=== PATIENT | male | born 1930 | race Caucasian/White ===

== ENCOUNTER 2019-08-09 08:11 | Emergency (ER) | payer MEDICARE ==
[~2019-08-09] VITALS: Ht 172.7 cm; Wt 79.8 kg
[~2019-08-09 08:11] MED LIST: ASPI81EC PO; CHOL10002 PO; FLUT.05NI; FLUT44OIA IH; FOL2.2T PO; GEMF600 PO; LOSA50 PO; OLOP.1OPSO OD; OMEP20ER PO; TAMS.4ER PO
[2019-08-09 08:38] LABS: BASOPHILS PERCENT AUTO 1 % (0-2); EOSINOPHILS ABSOLUTE AUTO 0.53 K/mm3 (0.00-0.68); EOSINOPHILS PERCENT AUTO 7 % (0-6); Hematocrit 45.6 % (37.0-53.0); Hemoglobin 15.5 g/dL (13.5-17.5); IMMATURE GRAN ABSOLUTE AUTO 0.02 K/mm3 (0.00-0.10); IMMATURE GRAN PERCENT AUTO 0 % (0-1); LYMPHOCYTES PERCENT AUTO 25 % (21-46); MONOCYTES ABSOLUTE AUTO 0.64 K/mm3 (0.16-1.47); MONOCYTES PERCENT AUTO 8 % (4-13); Mean Corpuscular HGB 32.2 pg (26.0-34.0); Mean Corpuscular Volume 95 fL (80-100); Mean Platelet Volume 10.6 fL (9.1-12.4); NEUTROPHILS PERCENT AUTO 58 % (41-73); Platelet Count 248 K/mm3 (150-400); RDW Coefficient Variation 12.3 % (11.7-14.2); RDW Standard Deviation 42.8 fL (35.1-46.3); Red Blood Cell Count 4.82 M/mm3 (4.30-5.90); White Blood Cell Count 7.89 K/mm3 (4.00-11.30)
[2019-08-09 08:58] LABS: Alanine Aminotransfer (ALT/SGP 35 U/L (12-78); Albumin, Blood 3.5 g/dL (3.4-5.0); Albumin/Globulin Ratio 0.9 (0.8-1.8); Alk Phos 95 U/L (50-136); Anion Gap 4 mmol/L (6-16); Aspartate Aminotrans (AST/SGOT 30 U/L (12-37); Bilirubin, Total 0.4 mg/dL (0.1-1.0); Blood Urea Nitrogen 18 mg/dL (8-24); Bun/Creatinine Ratio 21.7 (12.0-20.0); CO2, Blood 28 mmol/L (21-32); Calcium, Blood 9.3 mg/dL (8.5-10.1); Chloride, Blood 106 mmol/L (98-108); Creatinine, Blood 0.83 mg/dL (0.60-1.20); Globulin, Blood 4.1 g/dL (2.2-4.0); Glomerular Filtration Rate >60 (60-); Glucose, Blood 113 mg/dL (70-99); Potassium, Blood 4.1 mmol/L (3.5-5.5); Sodium, Blood 138 mmol/L (136-145); Total Protein, Blood 7.6 g/dL (6.4-8.2)
[2019-08-09] MEDS ORDERED: AMLO10 PO (10:11)
[2019-08-09] MEDS ORDERED: ESOM20 PO (10:21)
[2019-08-09] MEDS ORDERED: Medi-Meclizine25 MG PO (12:05)
== END 2019-08-09 12:55 | disposition home or self-care (01) ==
LOC: ER 08:11
PROVIDERS: Emergency Medicine
DX: R42 Dizziness and giddiness (principal); I10 Essential (primary) hypertension; Z87.891 Personal history of nicotine dependence; Z88.8 Allergy status to other drugs, medicaments and biological substances; Z88.5 Allergy status to narcotic agent; Z79.899 Other long term (current) drug therapy; Z79.82 Long term (current) use of aspirin
CPT/HCPCS: 70450; 80053; 84484; 85025; 93005; 93010; 99284-25; J7120

== ENCOUNTER 2019-08-15 10:20 | Emergency (ER) | payer MEDICARE ==
[~2019-08-15] VITALS: Ht 175.3 cm; Wt 81.7 kg
[~2019-08-15 10:20] MED LIST changes: +AMLO10 PO; +ESOM20 PO; +Medi-Meclizine25 MG PO
[2019-08-15] MEDS ORDERED: Norco 5-325 Ta1 EACH PO (12:07)
== END 2019-08-15 12:20 | disposition home or self-care (01) ==
LOC: ER 10:20
DX: S16.1XXA Strain of muscle, fascia and tendon at neck level, initial encounter (principal); I10 Essential (primary) hypertension; Z87.891 Personal history of nicotine dependence; Z88.8 Allergy status to other drugs, medicaments and biological substances; Z88.5 Allergy status to narcotic agent; Z79.899 Other long term (current) drug therapy; Z79.82 Long term (current) use of aspirin; W01.10XA Fall on same level from slipping, tripping and stumbling with subsequent striking against unspecified object, initial encounter
CPT/HCPCS: 72125; 99284-25

== ENCOUNTER 2020-09-07 19:28 | Emergency (ER) | payer MEDICARE ==
[~2020-09-07] VITALS: Ht 175.3 cm; Wt 81.7 kg
[~2020-09-07 19:28] MED LIST changes: +Norco 5-325 Ta1 EACH PO
[2020-09-07] MEDS ORDERED: LOSA25 (20:28)
[2020-09-07] MEDS ORDERED: PANTOPRAZOLE SO40 M2 PO (20:28)
== END 2020-09-07 21:21 | disposition home or self-care (01) ==
LOC: ER 19:28
DX: S40.012A Contusion of left shoulder, initial encounter (principal); I10 Essential (primary) hypertension; E78.00 Pure hypercholesterolemia, unspecified; Z79.899 Other long term (current) drug therapy; Z91.041 Radiographic dye allergy status; Z88.8 Allergy status to other drugs, medicaments and biological substances; Z87.891 Personal history of nicotine dependence; W01.0XXA Fall on same level from slipping, tripping and stumbling without subsequent striking against object, initial encounter
CPT/HCPCS: 73030; 99283-25

== ENCOUNTER → 2021-07-10 | Outpatient (CLI) | payer MEDICARE ==
[~2021-07-10] MED LIST changes: +LOSA25; +PANTOPRAZOLE SO40 M2 PO
[2021-07-10 12:15] LABS: BASOPHILS ABSOLUTE AUTO 0.08 K/mm3 (0.00-0.23); BASOPHILS PERCENT AUTO 1 % (0-2); EOSINOPHILS PERCENT AUTO 1 % (0-6); Hematocrit 45.9 % (37.0-53.0); Hemoglobin 15.8 g/dL (13.5-17.5); IMMATURE GRAN ABSOLUTE AUTO 0.02 K/mm3 (0.00-0.10); IMMATURE GRAN PERCENT AUTO 0 % (0-1); LYMPHOCYTES ABSOLUTE AUTO 2.28 K/mm3 (0.84-5.20); LYMPHOCYTES PERCENT AUTO 24 % (21-46); MONOCYTES PERCENT AUTO 8 % (4-13); Mean Corpuscular HGB 32.2 pg (26.0-34.0); Mean Corpuscular HGB Conc 34.4 g/dL (31.5-36.5); Mean Corpuscular Volume 94 fL (80-100); Mean Platelet Volume 10.8 fL (9.1-12.4); NEUTROPHILS PERCENT AUTO 66 % (41-73); Platelet Count 230 K/mm3 (150-400); RDW Coefficient Variation 12.7 % (11.7-14.2); RDW Standard Deviation 43.5 fL (35.1-46.3); Red Blood Cell Count 4.91 M/mm3 (4.30-5.90); White Blood Cell Count 9.68 K/mm3 (4.00-11.30)
[2021-07-10 12:28] LABS: Alanine Aminotransfer (ALT/SGP 38 U/L (12-78); Albumin, Blood 3.7 g/dL (3.4-5.0); Albumin/Globulin Ratio 0.9 (0.8-1.8); Alk Phos 112 U/L (40-126); Anion Gap 7 mmol/L (6-16); Aspartate Aminotrans (AST/SGOT 23 U/L (12-37); Bilirubin, Total 0.5 mg/dL (0.1-1.0); Blood Urea Nitrogen 15 mg/dL (8-24); Bun/Creatinine Ratio 13.6 (12.0-20.0); CO2, Blood 30 mmol/L (21-32); Calcium, Blood 9.3 mg/dL (8.5-10.1); Chloride, Blood 101 mmol/L (98-108); Globulin, Blood 4.1 g/dL (2.2-4.0); Glomerular Filtration Rate >60 (60-); Glucose, Blood 105 mg/dL (70-99); Potassium, Blood 4.4 mmol/L (3.5-5.5); Sodium, Blood 138 mmol/L (136-145); Total Protein, Blood 7.8 g/dL (6.4-8.2)
[2021-07-10 12:29] LABS: Troponin I <0.017 ng/mL (0.000-0.040)
== END | disposition home or self-care (01) ==
LOC: LAB SHORT 12:09 → LAB 12:09
PROVIDERS: Physician Assistant Medical
DX: R11.2 Nausea with vomiting, unspecified (principal); R07.9 Chest pain, unspecified
CPT/HCPCS: 80053; 83690; 84484; 85025; 85379

== ENCOUNTER → 2021-07-16 | Outpatient (CLI) | payer MEDICARE ==
[2021-07-16 09:25] LABS: BASOPHILS ABSOLUTE AUTO 0.06 K/mm3 (0.00-0.23); BASOPHILS PERCENT AUTO 1 % (0-2); EOSINOPHILS ABSOLUTE AUTO 0.26 K/mm3 (0.00-0.68); EOSINOPHILS PERCENT AUTO 3 % (0-6); Hematocrit 46.2 % (37.0-53.0); Hemoglobin 15.8 g/dL (13.5-17.5); IMMATURE GRAN ABSOLUTE AUTO 0.02 K/mm3 (0.00-0.10); IMMATURE GRAN PERCENT AUTO 0 % (0-1); LYMPHOCYTES ABSOLUTE AUTO 2.21 K/mm3 (0.84-5.20); LYMPHOCYTES PERCENT AUTO 22 % (21-46); MONOCYTES ABSOLUTE AUTO 0.77 K/mm3 (0.16-1.47); MONOCYTES PERCENT AUTO 8 % (4-13); Mean Corpuscular HGB 32.3 pg (26.0-34.0); Mean Corpuscular HGB Conc 34.2 g/dL (31.5-36.5); Mean Corpuscular Volume 95 fL (80-100); Mean Platelet Volume 11.1 fL (9.1-12.4); NEUTROPHILS ABSOLUTE AUTO 6.71 K/mm3 (1.96-9.15); NEUTROPHILS PERCENT AUTO 67 % (41-73); Platelet Count 259 K/mm3 (150-400); RDW Coefficient Variation 12.7 % (11.7-14.2); RDW Standard Deviation 43.7 fL (35.1-46.3); Red Blood Cell Count 4.89 M/mm3 (4.30-5.90); White Blood Cell Count 10.03 K/mm3 (4.00-11.30)
[2021-07-16 10:39] LABS: Alanine Aminotransfer (ALT/SGP 32 U/L (12-78); Albumin, Blood 3.7 g/dL (3.4-5.0); Albumin/Globulin Ratio 0.9 (0.8-1.8); Alk Phos 116 U/L (50-136); Anion Gap 3 mmol/L (6-16); Aspartate Aminotrans (AST/SGOT 14 U/L (12-37); Bilirubin, Total 0.5 mg/dL (0.1-1.0); Blood Urea Nitrogen 18 mg/dL (8-24); Bun/Creatinine Ratio 16.8 (12.0-20.0); CO2, Blood 30 mmol/L (21-32); Calcium, Blood 9.6 mg/dL (8.5-10.1); Chloride, Blood 104 mmol/L (98-108); Creatinine, Blood 1.07 mg/dL (0.60-1.20); Globulin, Blood 4.3 g/dL (2.2-4.0); Glomerular Filtration Rate >60 (60-); Glucose, Blood 114 mg/dL (70-99); Potassium, Blood 4.6 mmol/L (3.5-5.5); Sodium, Blood 137 mmol/L (136-145)
[2021-07-16 11:51] LABS: Campylobacter Sp Not Detected (NOT DETECT)
[2021-07-16 11:52] LABS: Adenovirus F 40/41 Not Detected (NOT DETECT); Astrovirus Not Detected (NOT DETECT); Cryptosporidium Not Detected (NOT DETECT); Cyclospora Cayetanensis Not Detected (NOT DETECT); E. Coli O157 Not Detected (NOT DETECT); Entamoeba Histolytica Not Detected (NOT DETECT); Enteroaggregative E. coli-EAEC Not Detected (NOT DETECT); Enteropathogenic E. coli-EPEC Not Detected (NOT DETECT); Enterotoxigenic E. coli-ETEC Not Detected (NOT DETECT); Giardia Lamblia Not Detected (NOT DETECT); Norovirus GI/GII Not Detected (NOT DETECT); Plesiomonas Shigelloides Not Detected (NOT DETECT); Rotavirus A Not Detected (NOT DETECT); Salmonella Sp Not Detected (NOT DETECT); Sapovirus Not Detected (NOT DETECT); Shiga Toxin-prod E. coli-STEC Not Detected (NOT DETECT); Shigella/Enteroin E. coli-EIEC Not Detected (NOT DETECT); Vibrio Cholerae Not Detected (NOT DETECT); Vibrio Sp Not Detected (NOT DETECT); Yersinia Enterocolitica Not Detected (NOT DETECT)
== END | disposition home or self-care (01) ==
LOC: LAB SHORT 09:22 → LAB 09:22
PROVIDERS: Physician Assistant Medical
DX: R11.2 Nausea with vomiting, unspecified (principal); R19.7 Diarrhea, unspecified
CPT/HCPCS: 0097U; 80053; 85025

== ENCOUNTER 2021-07-26 18:11 | Inpatient (IN) | payer MEDICARE ==
[~2021-07-26] VITALS: Ht 172.7 cm; Wt 72.6 kg
[~2021-07-26 18:11] MED LIST changes: -PANTOPRAZOLE SO40 M2 PO
[2021-07-26] MEDS ORDERED: LOSA50 PO (18:28)
[2021-07-26] MEDS ORDERED: PANT40 PO (18:29)
[2021-07-26] MEDS ORDERED: Flomax0.4 MG PO (18:29)
[2021-07-26] MEDS ORDERED: Vitamin B Comple1 EA PO (18:29)
[2021-07-26] MEDS ORDERED: VITAMIN D325 MC3 PO (18:29)
[2021-07-26] MEDS ORDERED: ALLEGRA ALLERG180 MG PO (18:29)
[2021-07-26 18:40] LABS: BASOPHILS ABSOLUTE AUTO 0.06 K/mm3 (0.00-0.23); BASOPHILS PERCENT AUTO 0 % (0-2); EOSINOPHILS ABSOLUTE AUTO 0.08 K/mm3 (0.00-0.68); EOSINOPHILS PERCENT AUTO 1 % (0-6); Hematocrit 44.5 % (37.0-53.0); Hemoglobin 14.9 g/dL (13.5-17.5); IMMATURE GRAN PERCENT AUTO 1 % (0-1); LYMPHOCYTES ABSOLUTE AUTO 1.87 K/mm3 (0.84-5.20); LYMPHOCYTES PERCENT AUTO 11 % (21-46); MONOCYTES ABSOLUTE AUTO 1.04 K/mm3 (0.16-1.47); MONOCYTES PERCENT AUTO 6 % (4-13); Mean Corpuscular HGB 31.8 pg (26.0-34.0); Mean Corpuscular HGB Conc 33.5 g/dL (31.5-36.5); Mean Corpuscular Volume 95 fL (80-100); NEUTROPHILS ABSOLUTE AUTO 13.99 K/mm3 (1.96-9.15); NEUTROPHILS PERCENT AUTO 82 % (41-73); Platelet Count 293 K/mm3 (150-400); RDW Coefficient Variation 12.6 % (11.7-14.2); RDW Standard Deviation 44.3 fL (35.1-46.3); Red Blood Cell Count 4.68 M/mm3 (4.30-5.90); White Blood Cell Count 17.14 K/mm3 (4.00-11.30)
[2021-07-26 19:19] LABS: Albumin, Blood 3.3 g/dL (3.4-5.0); Albumin/Globulin Ratio 0.7 (0.8-1.8); Bilirubin, Total 0.6 mg/dL (0.1-1.0); Bun/Creatinine Ratio 18.6 (12.0-20.0); Creatinine, Blood 1.29 mg/dL (0.60-1.20); Globulin, Blood 4.5 g/dL (2.2-4.0); Potassium, Blood 3.8 mmol/L (3.5-5.5); Total Protein, Blood 7.8 g/dL (6.4-8.2)
[2021-07-26 21:05] LABS: SARS-Cov-2 (COVID-19) PCR, MMC NEGATIVE (NEGATIVE)
[2021-07-26] MEDS ORDERED: Ondansetron Odt8 MG SL (21:50)
[2021-07-27 04:59] LABS: BASOPHILS ABSOLUTE AUTO 0.03 K/mm3 (0.00-0.23); BASOPHILS PERCENT AUTO 0 % (0-2); Hematocrit 43.9 % (37.0-53.0); LYMPHOCYTES ABSOLUTE AUTO 0.73 K/mm3 (0.84-5.20); LYMPHOCYTES PERCENT AUTO 5 % (21-46); MONOCYTES ABSOLUTE AUTO 0.28 K/mm3 (0.16-1.47); MONOCYTES PERCENT AUTO 2 % (4-13); Mean Corpuscular HGB 32.2 pg (26.0-34.0); Mean Corpuscular HGB Conc 34.2 g/dL (31.5-36.5); Mean Corpuscular Volume 94 fL (80-100); Mean Platelet Volume 11.1 fL (9.1-12.4); Platelet Count 263 K/mm3 (150-400); RDW Coefficient Variation 12.8 % (11.7-14.2); RDW Standard Deviation 44.2 fL (35.1-46.3); Red Blood Cell Count 4.66 M/mm3 (4.30-5.90); White Blood Cell Count 14.33 K/mm3 (4.00-11.30)
[2021-07-27 05:01] LABS: EOSINOPHILS PERCENT AUTO 0 % (0-6); IMMATURE GRAN ABSOLUTE AUTO 0.04 K/mm3 (0.00-0.10); IMMATURE GRAN PERCENT AUTO 0 % (0-1); NEUTROPHILS ABSOLUTE AUTO 13.25 K/mm3 (1.96-9.15); NEUTROPHILS PERCENT AUTO 92 % (41-73)
[2021-07-27 05:18] LABS: Albumin, Blood 2.6 g/dL (3.4-5.0); Albumin/Globulin Ratio 0.6 (0.8-1.8); Bilirubin, Total 0.6 mg/dL (0.1-1.0); Bun/Creatinine Ratio 19.9 (12.0-20.0); Calcium, Blood 9.4 mg/dL (8.5-10.1); Creatinine, Blood 1.41 mg/dL (0.60-1.20); Potassium, Blood 4.5 mmol/L (3.5-5.5); Total Protein, Blood 6.6 g/dL (6.4-8.2)
[2021-07-27 05:39] LABS: Adenovirus F 40/41 Not Detected (NOT DETECT); Astrovirus Not Detected (NOT DETECT); Campylobacter Sp Not Detected (NOT DETECT); Cryptosporidium Not Detected (NOT DETECT); Cyclospora Cayetanensis Not Detected (NOT DETECT); E. Coli O157 Not Detected (NOT DETECT); Entamoeba Histolytica Not Detected (NOT DETECT); Enteroaggregative E. coli-EAEC Not Detected (NOT DETECT); Enteropathogenic E. coli-EPEC Not Detected (NOT DETECT); Enterotoxigenic E. coli-ETEC Not Detected (NOT DETECT); Giardia Lamblia Not Detected (NOT DETECT); Norovirus GI/GII Not Detected (NOT DETECT); Plesiomonas Shigelloides Not Detected (NOT DETECT); Rotavirus A Not Detected (NOT DETECT); Salmonella Sp Not Detected (NOT DETECT); Sapovirus Not Detected (NOT DETECT); Shiga Toxin-prod E. coli-STEC Not Detected (NOT DETECT); Shigella/Enteroin E. coli-EIEC Not Detected (NOT DETECT); Vibrio Cholerae Not Detected (NOT DETECT); Vibrio Sp Not Detected (NOT DETECT); Yersinia Enterocolitica Not Detected (NOT DETECT)
--- NOTE | 2021-07-27 07:17 | NUR ---
PATIENT SUMMARY PATIENT IS ALERT AND ORIENTED X4. GENERALIZED WEAKNESS NOTED. VS STABLE FOR PATIENT ON RA. 1 EPISODE OF LOOSE STOOL MY SHIFT. SAMPLE SENT. PATIENT ON CONTACT PLUS PRECATUTIONS UNTIL RESULTS. BLANCHABLE REDNEDSS NOTED TO BUTTOCKS ENCOURAGED PATIENT TO CHANGE POSITION Q2HR. PATIENT ABLE TO GET UP TO BEDSIDE COMMODE WITH ONE PERSON ASSIST. DIZZINESS NOTED WITH ACTIVITY. ALL CARES COMPLETED AND MEDICATIONS GIVEN ORDERED ACCORDING TO NURSING JUDGEMENT. ALL UNFINISHED CARES ENDORSED TO ONCOMING SHIFT.
--- NOTE | 2021-07-27 14:57 | NUR ---
Spoke with son Rd who is requesting a call from the doctor regarding his dad's care. Spoke with Dr. Carreon and he will call and speak with the son after Dr. Ford has had a chance to see the pt. -sandy ([id number], 2:57 PM)
--- NOTE | 2021-07-27 17:51 | NUR ---
SHIFT SUMMARY THE PATIENT IS ALERT AND ORIENTED, AND COOPERATIVE WITH CARE. PATIENT GIVEN FLUID BOLUS THIS AM TO IMPROVE PRESSURES. SYSTOLIC WAS 87 NOW IT IS AT 104. DR. DRIVER CAME AND CONSULTED, NO SURGERY IS NEEDED AT THIS TIME REGARDING THE GI BLEED. THE PATIENT HAS BEEN RECEIVING ANTIBIOTICS FOR CDIFF AND FLUIDS THIS SHIFT. THE PATIENT'S ABDOMEN IS NONTENDER AND DENIES PAIN AT THIS TIME. THE PATIENT IS RESTING WITH CALL LIGHT IN PLACE.
[2021-07-28 04:50] LABS: BASOPHILS ABSOLUTE AUTO 0.06 K/mm3 (0.00-0.23); BASOPHILS PERCENT AUTO 0 % (0-2); EOSINOPHILS ABSOLUTE AUTO 0.03 K/mm3 (0.00-0.68); EOSINOPHILS PERCENT AUTO 0 % (0-6); Hematocrit 37.4 % (37.0-53.0); Hemoglobin 12.4 g/dL (13.5-17.5); IMMATURE GRAN ABSOLUTE AUTO 0.05 K/mm3 (0.00-0.10); IMMATURE GRAN PERCENT AUTO 0 % (0-1); LYMPHOCYTES ABSOLUTE AUTO 1.66 K/mm3 (0.84-5.20); LYMPHOCYTES PERCENT AUTO 11 % (21-46); MONOCYTES ABSOLUTE AUTO 0.94 K/mm3 (0.16-1.47); MONOCYTES PERCENT AUTO 6 % (4-13); Mean Corpuscular HGB 31.6 pg (26.0-34.0); Mean Corpuscular HGB Conc 33.2 g/dL (31.5-36.5); Mean Corpuscular Volume 95 fL (80-100); Mean Platelet Volume 11.5 fL (9.1-12.4); NEUTROPHILS ABSOLUTE AUTO 12.77 K/mm3 (1.96-9.15); NEUTROPHILS PERCENT AUTO 82 % (41-73); Platelet Count 212 K/mm3 (150-400); RDW Coefficient Variation 13.1 % (11.7-14.2); RDW Standard Deviation 46.3 fL (35.1-46.3); Red Blood Cell Count 3.92 M/mm3 (4.30-5.90); White Blood Cell Count 15.51 K/mm3 (4.00-11.30)
[2021-07-28 05:13] LABS: Albumin, Blood 2.1 g/dL (3.4-5.0); Anion Gap 5 mmol/L (6-16); Blood Urea Nitrogen 27 mg/dL (8-24); Bun/Creatinine Ratio 20.3 (12.0-20.0); CO2, Blood 27 mmol/L (21-32); Calcium, Blood 8.7 mg/dL (8.5-10.1); Chloride, Blood 109 mmol/L (98-108); Creatinine, Blood 1.33 mg/dL (0.60-1.20); Glomerular Filtration Rate 51 (60-); Glucose, Blood 104 mg/dL (70-99); Phosphorus, Blood 2.7 mg/dL (2.5-4.9); Sodium, Blood 141 mmol/L (136-145)
--- NOTE | 2021-07-28 06:04 | NUR ---
PATIENT SUMMARY PATIENT IS ALERT AND ORIENTED X4 CONFUSED AT TIMES. PATIENT ABLE TO AMBULATE TO RESTROOM WIT WALKER. NO EVENTS OVERNIGHT ALL CARES COMPLETED AND MEDICATIONS GIVEN ORDERED. ALL UNFINISHED CARES ENDORSED TO ONCOMING RN.
--- NOTE | 2021-07-28 06:28 | NUR ---
PATIENT SUMMARY PATIENT IS ALERT AND ORIENTED X4. VS STABLE FOR PATIENT ON RA. NO COMPLAINTS OF CP OR SHORTNESS OF BREATH. PATIENT HAD 2 SMALL BMs MY SHIFT. BLOOD ONLY NOTED FOR ONE STOOL. PATIENT MORE MOBILE AND REQUESTING FOOD. REINFORCED EDUCATION REGARDING PLAN OF CARE. PATIENT ABLE TO AMBULATE IN ROOM WITH STANDBY ASSIST WIT WALKER. ALL CARES AND MEDICATIONS COMPLETED AND GIVEN ORDERED. ALL UNFINISHED CARES ENDORSED TO ONCOMING RN.
--- NOTE | 2021-07-28 14:14 | NUR ---
PER PATIENT OK TO UPDATE ABRAHAN HOLDEN.[phone]
--- NOTE | 2021-07-28 14:16 | NUR ---
OK TO ORDER PT/OT PER
--- NOTE | 2021-07-28 17:20 | NUR ---
ALERT. ORIENTED. IV RT AC INFUSING. TOLERATED FULL LIQUID DIET. ABLE TO MAKE NEEDS KNOWN. AMBULATORY, STEADY GAIT USING IV POLE TO HOLD ONTO. UNLABORED RESPIRATIONS. TELE ON. WCTM
[2021-07-29 04:58] LABS: BASOPHILS ABSOLUTE AUTO 0.04 K/mm3 (0.00-0.23); BASOPHILS PERCENT AUTO 0 % (0-2); Hematocrit 33.9 % (37.0-53.0); Hemoglobin 11.4 g/dL (13.5-17.5); LYMPHOCYTES ABSOLUTE AUTO 1.83 K/mm3 (0.84-5.20); LYMPHOCYTES PERCENT AUTO 15 % (21-46); MONOCYTES ABSOLUTE AUTO 0.75 K/mm3 (0.16-1.47); MONOCYTES PERCENT AUTO 6 % (4-13); Mean Corpuscular HGB 32.3 pg (26.0-34.0); Mean Corpuscular HGB Conc 33.6 g/dL (31.5-36.5); Mean Corpuscular Volume 96 fL (80-100); Mean Platelet Volume 11.7 fL (9.1-12.4); Platelet Count 191 K/mm3 (150-400); RDW Coefficient Variation 13.3 % (11.7-14.2); RDW Standard Deviation 47.5 fL (35.1-46.3); Red Blood Cell Count 3.53 M/mm3 (4.30-5.90); White Blood Cell Count 12.36 K/mm3 (4.00-11.30)
[2021-07-29 04:59] LABS: EOSINOPHILS ABSOLUTE AUTO 0.26 K/mm3 (0.00-0.68); EOSINOPHILS PERCENT AUTO 2 % (0-6); IMMATURE GRAN ABSOLUTE AUTO 0.07 K/mm3 (0.00-0.10); IMMATURE GRAN PERCENT AUTO 1 % (0-1); NEUTROPHILS ABSOLUTE AUTO 9.41 K/mm3 (1.96-9.15); NEUTROPHILS PERCENT AUTO 76 % (41-73)
--- NOTE | 2021-07-29 05:24 | NUR ---
PATIENT SUMMARY PATIENT IS ALERT AND ORIENTED X4. VS STABLE FOR PATIENT ON RA. NO COMPLAINTS OF CHEST PAIN OR SHORTNESS OF BREATH. PATIENT HAD ONE LOOSE BM AND VOMITED X1 MY SHIFT. NO BLEEDING NOTED MY SHIFT. ENCOURAGED PATIENT TO INCREASE ACTIVITY TOLERATED. eNCOURAGED PATIENT TO INCREASE INTAKE WITH SMALL MEELS. ALL CARES COMPLETED AND MEDICATIONS GIVEN ORDERED ACCORDING TO NURSING JUDGEMENT. ALL UNIFINNISHED CARES ENDORSED TO ONCOMING NURSE.
[2021-07-29 05:42] LABS: Albumin, Blood 1.9 g/dL (3.4-5.0); Anion Gap 4 mmol/L (6-16); Blood Urea Nitrogen 17 mg/dL (8-24); Bun/Creatinine Ratio 15.5 (12.0-20.0); CO2, Blood 25 mmol/L (21-32); Calcium, Blood 8.4 mg/dL (8.5-10.1); Chloride, Blood 111 mmol/L (98-108); Glomerular Filtration Rate >60 (60-); Glucose, Blood 86 mg/dL (70-99); Potassium, Blood 3.7 mmol/L (3.5-5.5); Sodium, Blood 140 mmol/L (136-145)
--- NOTE | 2021-07-29 13:42 | NUR ---
UPDATED SON, ABRAHAN, ON PATIENT CONDITION. SON WILL CALL [facility] TOMORROW SO HE CAN BE INVOLVED IN DISCHARGE.
--- NOTE | 2021-07-29 17:59 | NUR ---
ALERT. ORIENTED. PLEASANT. STANDBY ASSIST TO BATHROOM. UNLABORED RESPIRATIONS. DIET CHANGED TO BRAT. POOR APPETITE. STS "FEELS FULL" WITH LITTLE CONSUMED. LIKES TOMATO SOUP SO CUP ORDERED FOR LATER. MEDICATED FOR NAUSEA X ONCE. WCTM
[2021-07-30 05:03] LABS: BASOPHILS ABSOLUTE AUTO 0.06 K/mm3 (0.00-0.23); BASOPHILS PERCENT AUTO 1 % (0-2); EOSINOPHILS ABSOLUTE AUTO 0.34 K/mm3 (0.00-0.68); EOSINOPHILS PERCENT AUTO 3 % (0-6); Hematocrit 34.6 % (37.0-53.0); Hemoglobin 11.7 g/dL (13.5-17.5); IMMATURE GRAN ABSOLUTE AUTO 0.06 K/mm3 (0.00-0.10); IMMATURE GRAN PERCENT AUTO 1 % (0-1); LYMPHOCYTES ABSOLUTE AUTO 1.47 K/mm3 (0.84-5.20); LYMPHOCYTES PERCENT AUTO 11 % (21-46); MONOCYTES ABSOLUTE AUTO 0.89 K/mm3 (0.16-1.47); MONOCYTES PERCENT AUTO 7 % (4-13); Mean Corpuscular HGB 32.2 pg (26.0-34.0); Mean Corpuscular HGB Conc 33.8 g/dL (31.5-36.5); Mean Corpuscular Volume 95 fL (80-100); Mean Platelet Volume 11.2 fL (9.1-12.4); NEUTROPHILS ABSOLUTE AUTO 10.34 K/mm3 (1.96-9.15); NEUTROPHILS PERCENT AUTO 78 % (41-73); Platelet Count 218 K/mm3 (150-400); RDW Coefficient Variation 13.2 % (11.7-14.2); RDW Standard Deviation 46.3 fL (35.1-46.3); Red Blood Cell Count 3.63 M/mm3 (4.30-5.90); White Blood Cell Count 13.16 K/mm3 (4.00-11.30)
[2021-07-30 05:25] LABS: Albumin, Blood 1.9 g/dL (3.4-5.0); Anion Gap 5 mmol/L (6-16); Blood Urea Nitrogen 11 mg/dL (8-24); Bun/Creatinine Ratio 10.8 (12.0-20.0); CO2, Blood 25 mmol/L (21-32); Calcium, Blood 8.7 mg/dL (8.5-10.1); Chloride, Blood 108 mmol/L (98-108); Creatinine, Blood 1.02 mg/dL (0.60-1.20); Glomerular Filtration Rate >60 (60-); Glucose, Blood 91 mg/dL (70-99); Phosphorus, Blood 2.4 mg/dL (2.5-4.9); Potassium, Blood 3.5 mmol/L (3.5-5.5); Sodium, Blood 138 mmol/L (136-145)
--- NOTE | 2021-07-30 06:07 | NUR ---
EMERGENCY TECHNICIAN SUMMARY ADMITTED FOR ACUTE COLITIS. PT IS DNR. PT RECEIVING MULTIPLE ABX. HE HAD MULTIPLE WATERY BMS THROUGHOUT THE NIGHT. NO JEN BLOOD NOTED. PT RESTING COMFORTABLY AT THIS TIME. NO OTHER CONCERNS THIS SHIFT.
--- NOTE | 2021-07-30 10:35 | NUR ---
IF IN RT AC INF. STOPPED IV. WILL REPLACE
--- NOTE | 2021-07-30 18:40 | NUR ---
PT QUITE PLEASANT TODAY. NO C/O PAIN, BUT DID HAVE NAUSEA TODYA. MEDICATED ONCE WITH ZOFRAN. ALSO GAVE SODA CRACKERS AND 7UP WHICH HE STATES DID HELP. DID WALK HALLS SOME TODAY, NO NEW CONCERNS NOTED. BED IN LOW POSITION, CALL LITE IN REACH, CALLS APPROP
--- NOTE | 2021-07-31 04:56 | NUR ---
SHIFT SUMMARY AOX3. BP ELEVATED LAST NIGHT @189/82, RECHECKED & 172/70, PT WAS RESTARTED ON [place] YESTERDAY, BP WNL TODAY. REST OF VITALS STABLE. TELE NSR. DENIES PAIN. REPORTED NAUSEA THIS AM, ZOFRAN GIVEN 1X ALONG c SALTINE CRACKERS & PT REPORTED RELIEF. NO BM THIS SHIFT. ACTIVE BT A4Q. LAST NIGHT c PM MEDS PT STARTED COUGHING UP CLEAR SPUTUM AFTER PO MED TAKEN & APPEARED SOB, STATED "SOMETIMES I HAVE SWALLOWING PROBLEMS & THINGS GO DOWN THE WRONG TUBE." NEW CRACKLES HEARD RLL THIS AM, PT STATED HE FELT HE WAS COMING DOWN c A COLD & HAD YELLOW SPUTUM c COUGH. WILL PASS THIS INFO TO DAY SHIFT. CALL LIGHT IN REACH. WCTM.
[2021-07-31 05:02] LABS: BASOPHILS ABSOLUTE AUTO 0.06 K/mm3 (0.00-0.23); BASOPHILS PERCENT AUTO 1 % (0-2); EOSINOPHILS ABSOLUTE AUTO 0.31 K/mm3 (0.00-0.68); EOSINOPHILS PERCENT AUTO 2 % (0-6); Hematocrit 38.2 % (37.0-53.0); IMMATURE GRAN ABSOLUTE AUTO 0.07 K/mm3 (0.00-0.10); IMMATURE GRAN PERCENT AUTO 1 % (0-1); LYMPHOCYTES ABSOLUTE AUTO 1.58 K/mm3 (0.84-5.20); LYMPHOCYTES PERCENT AUTO 12 % (21-46); MONOCYTES ABSOLUTE AUTO 1.02 K/mm3 (0.16-1.47); MONOCYTES PERCENT AUTO 8 % (4-13); Mean Corpuscular HGB 31.9 pg (26.0-34.0); Mean Corpuscular Volume 94 fL (80-100); Mean Platelet Volume 10.7 fL (9.1-12.4); NEUTROPHILS ABSOLUTE AUTO 9.91 K/mm3 (1.96-9.15); NEUTROPHILS PERCENT AUTO 77 % (41-73); Platelet Count 259 K/mm3 (150-400); RDW Coefficient Variation 12.9 % (11.7-14.2); RDW Standard Deviation 44.4 fL (35.1-46.3); Red Blood Cell Count 4.08 M/mm3 (4.30-5.90); White Blood Cell Count 12.95 K/mm3 (4.00-11.30)
[2021-07-31 05:10] LABS: Albumin, Blood 2.1 g/dL (3.4-5.0); Anion Gap 6 mmol/L (6-16); Blood Urea Nitrogen 7 mg/dL (8-24); Bun/Creatinine Ratio 7.3 (12.0-20.0); CO2, Blood 28 mmol/L (21-32); Calcium, Blood 8.8 mg/dL (8.5-10.1); Chloride, Blood 105 mmol/L (98-108); Creatinine, Blood 0.95 mg/dL (0.60-1.20); Glomerular Filtration Rate >60 (60-); Glucose, Blood 98 mg/dL (70-99); Phosphorus, Blood 2.7 mg/dL (2.5-4.9); Potassium, Blood 3.2 mmol/L (3.5-5.5); Sodium, Blood 139 mmol/L (136-145)
--- NOTE | 2021-07-31 13:07 | NUR ---
Patient is lying in bed and resting but easily awakens to the sound of his name. Patient talks about his family and how horrible the last couple of days have been. Patient remains sleepy. He talks about his Jainism suman and welcomes prayer. I gladly provide prayer. I also read Psalm 16 to him. Patient begins to fall asleep and so I let him rest. I will continue to remain available to patient and family.
--- NOTE | 2021-07-31 15:11 | NUR ---
spoke with son over the phone. Discussed that his dad's care. Discussed the recommendation right now for PT is for home health. Son is happy with the communication that Dr. Richards is providing. provided my phone number in case he has further questions. ([id number], 3:11 PM)
--- NOTE | 2021-07-31 18:07 | NUR ---
PT IS ALERT AND ORIENTED X 2. HE DENIES PAIN. HE REPORTED PAULINO, NAUSEA, AND FEELING TIRED TODAY. HIS BLOOD PRESSURE WAS ELEVATED AND DR. NINO WAS NOTIFIED. HYDRALAZINE 10MG WAS ORDERED PRN AND ONE DOSE WAS ADMINISTERED. BLOOD PRESSURE DECREASED AFTER INTERVENTION. KCL WAS ORDERED AND INFUSING AT 30ML/HR. THE PT C/O SEVERE PAIN TO RIGHT ARM VIA IV SITE. PT WAS CHANGED TO RUN CONCURRENTLY WITH NS. PT DID NOT HAVE FURTHER REPORTS OF PAIN. HE WAS CHANGED TO DYSPHAGIA PRECAUTIONS. HE HAD AN UNEVENTFUL DAY. BM X 1.
--- NOTE | 2021-08-01 05:51 | NUR ---
SHIFT SUMMARY AOX4. BP ELEVATED @170/66, WILL MEDICATE c HYDRALAZINE & RECHECK. REST OF VITALS STABLE. TELE NSR. SPO2 >90% ON RA. DENIES SOB. STILL HAS OCC PRODUCTIVE COUGH. RLL CRACKLES. DID BETTER TAKING MEDS IN APPLESAUCE TONIGHT NO COUGHING AFTER SWALLOWING. CALL LIGHT IN REACH & PT ABLE TO MAKE NEEDS KNOWN.
[2021-08-01 11:07] LABS: BASOPHILS ABSOLUTE AUTO 0.07 K/mm3 (0.00-0.23); BASOPHILS PERCENT AUTO 1 % (0-2); EOSINOPHILS ABSOLUTE AUTO 0.22 K/mm3 (0.00-0.68); EOSINOPHILS PERCENT AUTO 2 % (0-6); Hematocrit 38.8 % (37.0-53.0); IMMATURE GRAN ABSOLUTE AUTO 0.14 K/mm3 (0.00-0.10); IMMATURE GRAN PERCENT AUTO 1 % (0-1); LYMPHOCYTES ABSOLUTE AUTO 1.51 K/mm3 (0.84-5.20); LYMPHOCYTES PERCENT AUTO 11 % (21-46); MONOCYTES ABSOLUTE AUTO 1.34 K/mm3 (0.16-1.47); MONOCYTES PERCENT AUTO 10 % (4-13); Mean Corpuscular HGB 31.5 pg (26.0-34.0); Mean Corpuscular HGB Conc 33.5 g/dL (31.5-36.5); Mean Corpuscular Volume 94 fL (80-100); Mean Platelet Volume 10.1 fL (9.1-12.4); NEUTROPHILS ABSOLUTE AUTO 10.15 K/mm3 (1.96-9.15); NEUTROPHILS PERCENT AUTO 76 % (41-73); Platelet Count 277 K/mm3 (150-400); RDW Standard Deviation 44.7 fL (35.1-46.3); Red Blood Cell Count 4.13 M/mm3 (4.30-5.90); White Blood Cell Count 13.43 K/mm3 (4.00-11.30)
[2021-08-01 11:35] LABS: Anion Gap 5 mmol/L (6-16); Blood Urea Nitrogen 8 mg/dL (8-24); Bun/Creatinine Ratio 7.7 (12.0-20.0); CO2, Blood 29 mmol/L (21-32); Calcium, Blood 8.8 mg/dL (8.5-10.1); Chloride, Blood 104 mmol/L (98-108); Creatinine, Blood 1.04 mg/dL (0.60-1.20); Glomerular Filtration Rate >60 (60-); Glucose, Blood 143 mg/dL (70-99); Potassium, Blood 3.3 mmol/L (3.5-5.5); Sodium, Blood 138 mmol/L (136-145)
--- NOTE | 2021-08-01 14:26 | NUR ---
Introduction: PT refered by Spiritual Care Team. Assessment: PT presented seated upright in his bed, reading his Bible with a jovial expression. PT very quickly asked for prayer, PT and I prayed together and PT, "Thank you God for your presence in this room." PT after prayer, began to weep as he explained his deep affection for his , Soledad. PT then began to show me his family photos from his phone. Intervention: PT offered prayer. Outcome: PT received prayer and a listening ear for great family stories. Follow-up: As needed or requested. Visit was requested for [id number].
--- NOTE | 2021-08-01 15:42 | NUR ---
PATIENT IS ALERT AND ORIENTED. PLEASANT AND COOPERATIVE WITH STAFF AND CARE PROVIDED. VITALS HAVE BEEN STABLE. PO MEDS TAKEN WHOLE IN APPLESAUCE OR PUDDING AND PATIENT TOLERATES WELL. PATIENT TO CONTINUE TO RECIEVE MORE IV POTASSIUM FOR THE NEXT TWO DAYS PER EMAR SCHEDULE. PATIENT CALLS APPROPRIATELY FOR STAFF ASSIST NEEDED. CALL LIGHT WITHIN REACH.
--- NOTE | 2021-08-02 07:08 | NUR ---
PATIENT IS ALERT AND ORIENTED, PLEASANT AND COOPERATIVE. IV POTASSIUM ADMINISTERED ORDERED. PATIENT IS ABLE TO MAKE HIS NEEDS KNOWN. PATIENT REQUESTED TO USE THE URINAL X2, PATIENT VOIDED 300CC OF URINE THIS SHIFT. PATIENT CONTINUE TO USE THE SUCTION NEEDED FOR MUCUS PRODUCTION. WILL CONTINUE TO MONITOR.
[2021-08-02 11:28] LABS: Anion Gap 5 mmol/L (6-16); Blood Urea Nitrogen 7 mg/dL (8-24); Bun/Creatinine Ratio 7.3 (12.0-20.0); CO2, Blood 27 mmol/L (21-32); Calcium, Blood 8.2 mg/dL (8.5-10.1); Chloride, Blood 104 mmol/L (98-108); Creatinine, Blood 0.96 mg/dL (0.60-1.20); Glomerular Filtration Rate >60 (60-); Glucose, Blood 142 mg/dL (70-99); Potassium, Blood 3.9 mmol/L (3.5-5.5); Sodium, Blood 136 mmol/L (136-145)
[2021-08-02 12:28] LABS: BASOPHILS ABSOLUTE AUTO 0.06 K/mm3 (0.00-0.23); BASOPHILS PERCENT AUTO 1 % (0-2); EOSINOPHILS ABSOLUTE AUTO 0.23 K/mm3 (0.00-0.68); EOSINOPHILS PERCENT AUTO 2 % (0-6); Hematocrit 42.4 % (37.0-53.0); Hemoglobin 14.1 g/dL (13.5-17.5); IMMATURE GRAN ABSOLUTE AUTO 0.18 K/mm3 (0.00-0.10); IMMATURE GRAN PERCENT AUTO 2 % (0-1); LYMPHOCYTES ABSOLUTE AUTO 1.89 K/mm3 (0.84-5.20); LYMPHOCYTES PERCENT AUTO 15 % (21-46); MONOCYTES ABSOLUTE AUTO 1.42 K/mm3 (0.16-1.47); MONOCYTES PERCENT AUTO 12 % (4-13); Mean Corpuscular HGB 31.1 pg (26.0-34.0); Mean Corpuscular HGB Conc 33.3 g/dL (31.5-36.5); Mean Corpuscular Volume 93 fL (80-100); Mean Platelet Volume 9.9 fL (9.1-12.4); NEUTROPHILS ABSOLUTE AUTO 8.62 K/mm3 (1.96-9.15); NEUTROPHILS PERCENT AUTO 69 % (41-73); Platelet Count 303 K/mm3 (150-400); RDW Standard Deviation 44.4 fL (35.1-46.3); Red Blood Cell Count 4.54 M/mm3 (4.30-5.90)
[2021-08-02] MEDS ORDERED: ACET325 PO (14:27)
[2021-08-02] MEDS ORDERED: CIPR500 PO (14:27)
[2021-08-02] MEDS ORDERED: AMLO5 PO (14:27)
[2021-08-02] MEDS ORDERED: DOCU100 PO (14:28)
[2021-08-02] MEDS ORDERED: METR500 PO (14:28)
[2021-08-02] MEDS ORDERED: POTCHL20ER PO (14:29)
[2021-08-02] MEDS ORDERED: SIME80CH PO (14:30)
--- NOTE | 2021-08-02 16:01 | NUR ---
Patient is lying in bed and alert. Patient tells me about the improvement in his condition and about the wonderful care he has received from the nursing staff including his day RN Angela. Patient speaks about his suman and all that it means to him especially in trying times. He talks about the baptism he attends ([employer] in [place]) and the positive connections and support he gains from baptism people. I provide recitation of scripture and prayer. Patient responds well and displays an elevated mood. I will continue to remain available to patient and family.
--- NOTE | 2021-08-02 18:20 | NUR ---
MR. DAVID WAS DISCHARGED TO HOME. HE WAS ALERT AND ORIENTED X 3. HE DENIED PAIN TODAY. HE WAS VERY PLEASANT AND COOPERATIVE. HE REQUIRES ONE PERSON ASSIST WITH ADLS. HE WAS TRANSPORTED VIA WHEELCHAIR TO CAR AND HE STARTED EXPERIENCING NAUSEA TO EXCESSIVE SALIVA. HE COUGH UP THICK SPUTUM AND FELT RELIEVED. HIS SON WAS PRESENT TO ASSIST. I DISCUSSED DISCHARGE INSTRUCTIONS WITH SON. PATIENT WAS PROVIDED EMESIS CONTAINER TO TAKE HOME.
== END 2021-08-02 17:28 | disposition home health service (06) | DRG 872 ==
LOC: ER 18:11 → MEDS 07-27 00:19
PROVIDERS: Emergency Medicine; Family Medicine; Internal Medicine Endocrinology, Diabetes & Metabolism; Student in an Organized Health Care Education/Training Program; ADMIT Internal Medicine
DX: A41.9 Sepsis, unspecified organism (principal); A04.72 Enterocolitis due to Clostridium difficile, not specified as recurrent; N17.9 Acute kidney failure, unspecified; K62.5 Hemorrhage of anus and rectum; E44.1 Mild protein-calorie malnutrition; Z20.822 Contact with and (suspected) exposure to COVID-19; R65.20 Severe sepsis without septic shock; I10 Essential (primary) hypertension; Z66 Do not resuscitate; E78.5 Hyperlipidemia, unspecified; R05 Cough; R01.1 Cardiac murmur, unspecified; K21.9 Gastro-esophageal reflux disease without esophagitis; N40.0 Benign prostatic hyperplasia without lower urinary tract symptoms; E11.9 Type 2 diabetes mellitus without complications; Z98.52 Vasectomy status; Z88.8 Allergy status to other drugs, medicaments and biological substances; Z79.899 Other long term (current) drug therapy; Z68.24 Body mass index [BMI] 24.0-24.9, adult
CPT/HCPCS: 0097U; 36415; 71045; 71046; 74176; 80048; 80053; 80069; 82947; 83605; 83690; 84145; 84484; 85018; 85025; 85379; 86850; 86900; 86901; 87040; 87324; 92526; 92610; 93005; 93010; 93306; 93975; 94762; 96365; 96375; 96376; 97110; 97116; 97161; 97165; 97530; 97535; 99285-25; A9270; C9113; G0103; J0360; J0780; J2405; J2543; J3480; J7030; J7050; U0004